=== PATIENT | male | born 1995 | race Hispanic/Latino ===

== ENCOUNTER 2018-06-05 02:03 | Emergency (ER) | payer SELFPAY ==
[2018-06-05] MEDS ORDERED: Acetaminophen 325 MG TAB ONE (07:58)
[2018-06-05] MEDS ORDERED: Proparacaine 0.5% Opth 15 ML BOT ONE (09:16)
[2018-06-05] MEDS ORDERED: Fluorescein Opthalmic Strip ONE (09:16)
[2018-06-05] MEDS ORDERED: Lidocaine 2% PF 5 ML VIAL ONE (09:42)
--- NOTE | 2018-06-05 10:04 | CT ---
CT FACIAL BONES: Date: 06/05/18 PROVIDED CLINICAL HISTORY: Right eye pain status post injury. FINDINGS: Prominent right infraorbital/premaxillary soft tissue swelling. No evidence for fracture. The globes and other orbital contents appear normal. IMPRESSION: No evidence for fracture. POS: GRECIA
--- NOTE | 2018-06-05 10:20 | RAD ---
RIGHT HAND 3 VIEWS: Date: 06/05/18 PROVIDED CLINICAL HISTORY: Fifth metacarpal pain. FINDINGS: No comparisons. Sequelae of prior, healed fifth metacarpal fracture. No evidence for an acute fracture or other acute osseous abnormality. Negative ulnar variance is seen. Alignment appears otherwise anatomic. Joint sp aces appear preserved. IMPRESSION: No evidence for an acute osseous abnormality. POS: JODY
== END 2018-06-05 10:54 | disposition home or self-care (01) ==
LOC: ERS 02:03
DX: S01.111A Laceration without foreign body of right eyelid and periocular area, initial encounter (principal); S63.91XA Sprain of unspecified part of right wrist and hand, initial encounter; Y04.0XXA Assault by unarmed brawl or fight, initial encounter
CPT/HCPCS: 12011; 70486; J2001